=== PATIENT | male | born 1995 | race Caucasian/White ===

== ENCOUNTER 2018-07-09 16:10 | Emergency (ER) | payer SELFPAY ==
[~2018-07-09] VITALS: Ht 182.9 cm; Wt 99.8 kg
--- OUTSIDE RECORDS SUMMARY | 2018-07-09 16:12 | XMS REPORT | Continuity of Care Document ---
Author Author Bethany gia [facility] Interface Address Unknown Phone Unavailable Problems Problem Status Onset Date Classification Date Reported Comments Source Discharge Diagnosis: Atypical chest pain 12/26/2014 12/29/2014 [facility] Discharge Diagnosis: Acute anxiety 12/26/2014 12/29/2014 [facility] CHEST PAIN Active 12/26/2014 [facility] Anxiety Resolved Problem 12/29/2014 [facility] Medications Medication Details Route Status Patient Instructions Ordering Provider Order Date Source Ativan 1 mg, 0.5 mL, Route: IVP, Drug form: INJ, ONCE, Dosing Weight 111.364, kg, Priority: STAT, Start date: 12/26/14 20:41:00, Stop date: 12/26/14 20:41:00Notes: (Same as: Ativan) Inactive 12/27/2014 [facility] Aspirin 324 mg, 4 tab, Route: PO, Drug form: CHEWTAB, ONCE, Dosing Weight 111.364, kg, Priority: STAT, Start date: 12/26/14 20:41:00, Stop date: 12/26/14 20:41:00Notes: Take with food. Inactive 12/27/2014 [facility] Saline Flush 0.9% 10 mL, Route: IVP, Drug Form: INJ, Dosing Weight 111.364, kg, PRN, PRN Line Flush, Start date: 12/26/14 20:41:00, Duration: 30 day, Stop date: 01/25/15 20:40:00Notes: (Same as: BD Posiflush) Inactive 12/27/2014 [facility] Allergies, Adverse Reactions, Alerts Substance Category Reaction Severity Reaction type Status Date Reported Comments Source Immunizations Immunization Date Given Site Status Last Updated Comments Source Results Order Name Results Value Reference Range Date Interpretation Comments Source CARDIAC ENZYMES CK MB Index 0.4 0.0 - 2.5 12/27/2014 [facility] CARDIAC ENZYMES Troponin-I null 0.00 - 0.40 12/27/2014 [facility] CARDIAC ENZYMES CK MB 0.7 ng/mL 0.5 - 3.6 12/27/2014 [facility] CARDIAC ENZYMES Total CK 177 unit/L 12 - 191 12/27/2014 [facility] CHEM PANEL Bili Total 0.4 mg/dL 0.2 - 1.3 12/27/2014 [facility] CHEM PANEL B/C Ratio 13 6 - 25 12/27/2014 [facility] CHEM PANEL BUN 18 mg/dL 7 - 22 12/27/2014 [facility] CHEM PANEL Glucose Lvl 91 mg/dL 70 - 99 12/27/2014 [facility] CHEM PANEL CO2 26 meq/L 24 - 32 12/27/2014 [facility] CHEM PANEL AGAP 11.6 meq/L 10.0 - 20.0 12/27/2014 [facility] CHEM PANEL Albumin Lvl 4.4 g/dL 3.5 - 5.0 12/27/2014 [facility] CHEM PANEL AST 23 unit/L 0 - 37 12/27/2014 [facility] CHEM PANEL ALT 83 unit/L 0 - 65 12/27/2014 [facility] CHEM PANEL Alk Phos 87 unit/L 39 - 136 12/27/2014 [facility] CHEM PANEL Sodium Lvl 140 meq/L 135 - 145 12/27/2014 [facility] CHEM PANEL Potassium Lvl 3.6 meq/L 3.5 - 5.1 12/27/2014 [facility] CHEM PANEL Chloride Lvl 106 meq/L 95 - 109 12/27/2014 [facility] CHEM PANEL A/G Ratio 1.3 0.7 - 1.6 12/27/2014 [facility] CHEM PANEL Globulin 3.5 g/dL 2.0 - 4.0 12/27/2014 [facility] CHEM PANEL Total Protein 7.9 g/dL 6.4 - 8.4 12/27/2014 [facility] CHEM PANEL eGFR 71 mL/min/1.73m2 12/27/2014 Result Comment: The eGFR is calculated using the CKD-EPI formula. In most young, healthy individuals the eGFR will be >90 mL/min/1.73m2. The eGFR declines with age. An eGFR of 60-89 may be normal in some populations, particularly the elderly, for whom the CKD-EPI formula has not been extensively validated. Use of the eGFR is not recommended in the following populations: Individuals with unstable creatinine concentrations, including patients and those with serious co-morbid conditions. Patients with extremes in muscle mass or diet. The data above are obtained from the National Kidney Disease Education Program (NKDEP) which additionally recommends that when the eGFR is used in patients with extremes of body mass index for purposes of drug dosing, the eGFR should be multiplied by the estimated BMI. [facility] CHEM PANEL Creatinine Lvl 1.4 mg/dL 0.5 - 1.4 12/27/2014 [facility] CHEM PANEL Calcium Lvl 9.0 mg/dL 8.5 - 10.5 12/27/2014 [facility] HEMATOLOGY Eosinophils # 0.1 K/CMM 0.0 - 0.5 12/27/2014 [facility] HEMATOLOGY Basophils # 0.1 K/CMM 0.0 - 0.2 12/27/2014 [facility] HEMATOLOGY Basophils 0.6 % 0.0 - 1.0 12/27/2014 [facility] HEMATOLOGY Segs-Bands # 7.5 K/CMM 1.5 - 8.1 12/27/2014 [facility] Monocytes # 1.1 K/CMM 0.0 - 0.8 12/27/2014 [facility] Lymphocytes # 2.7 K/CMM 1.0 - 5.5 12/27/2014 [facility] Monocytes 9.4 % 2.0 - 12.0 12/27/2014 [facility] Eosinophils 0.9 % 0.0 - 4.0 12/27/2014 [facility] Lymphocytes 23.8 % 20.0 - 40.0 12/27/2014 [facility] Segs 65.3 % 45.0 - 75.0 12/27/2014 [facility] WBC 11.5 K/CMM 3.7 - 10.4 12/27/2014 [facility] RBC 5.59 M/CMM 4.70 - 6.10 12/27/2014 [facility] MCH 29.0 pg 27.0 - 31.0 12/27/2014 [facility] MCHC 33.3 g/dL 32.0 - 36.0 12/27/2014 [facility] Hgb 16.2 g/dL 14.0 - 18.0 12/27/2014 [facility] Hct 48.6 % 42.0 - 54.0 12/27/2014 [facility] MCV 87.1 fL 80.0 - 94.0 12/27/2014 [facility] RDW 13.4 % 11.5 - 14.5 12/27/2014 [facility] Platelet 168 K/CMM 133 - 450 12/27/2014 [facility] MPV 10.6 fL 7.4 - 10.4 12/27/2014 [facility] Chest 2 views DX Chest 2 views DX Chest, 2 views: CLINICAL HISTORY: Chest pain COMPARISON: No prior similar examinations are available for comparison. The lungs are clear of consolidation, pleural effusion, and pneumothorax. The heart size is normal. Ill-defined opacity seen in the posterior base of the heart on the lateral image represents summation artifact from vessels. No evidence of pneumoperitoneum. No acute osseous abnormality. IMPRESSION: Normal PA and lateral chest. SL:17 12/26/2014 - - Read by: Joaquín Alba MD Dictated Date/time: 12/26/14 20:01 Electronically Signed by: Joaquín Alba MD 12/26/14 20:02 FINAL REPORT [facility] Vital Signs Vital Sign Value Date Comments Source Systolic (mm Hg) 143 12/27/2014 [facility] Diastolic (mm Hg) 91 12/27/2014 [facility] Respitory Rate 16 12/27/2014 [facility] Heart Rate 80 12/27/2014 [facility] Heart Rate 84 12/27/2014 [facility] Respitory Rate 17 12/27/2014 [facility] Systolic (mm Hg) 143 12/27/2014 [facility] Diastolic (mm Hg) 81 12/27/2014 [facility] Temperature Oral (F) 98.4 F 12/27/2014 [facility] Heart Rate 87 12/27/2014 [facility] Respitory Rate 17 12/27/2014 [facility] Height 182.88 cm 12/27/2014 [facility] Temperature Oral (F) 98.4 F 12/27/2014 [facility] BMI Calculated 33.3 12/27/2014 [facility] Weight 111.364 12/27/2014 [facility] Systolic (mm Hg) 152 12/27/2014 [facility] Diastolic (mm Hg) 87 12/27/2014 [facility] Encounters Location Location Details Encounter Type Encounter Number Reason For Visit Attending Provider ADM Date DC Date Status Source [facility] [id number] Eron Chawla 12/27/2014 12/27/2014 [facility] Outpatient [id number] RAUL CRUZ 04/21/2018 Active [facility] Procedures Procedure Code Date Perfomer Comments Source
--- OUTSIDE RECORDS SUMMARY | 2018-07-09 16:12 | XMS REPORT | Clinical Summary ---
Author Author [facility] Address Unknown Phone Unavailable Care Team Providers Care Airplane Flight Attendant Name Role Phone Ashley Hardy DO PCP Allergies No Known Allergies Medications End Date Status Medication Sig Dispensed Refills Start Date Active therapeutic multivitamin Take 1 tablet 0 (THERAGRAN) tablet by mouth daily. 09/08/2017 amoxicillin-pot Take 1 tablet 20 tablet 0 clavulanate (AUGMENTIN) by mouth 2 8 875-125 mg per tablet (two) times a day for 10 days. 09/28/2017 benzonatate (TESSALON) Take 1 30 capsule 0 200 MG capsule capsule (200 8 mg total) by mouth 3 (three) times a day as needed for cough for up to 30 days. 09/08/2017 codeine-guaifenesin Take 10 mL by 240 mL 0 (GUAIFENESIN AC) 10-100 mouth 4 8 mg/5 mL liquid (four) times a day as needed for cough for up to 10 days. 09/12/2017 promethazine-codeine Take 5 mL by 240 mL 0 (PHENERGAN with CODEINE) mouth every 4 8 6.25-10 mg/5 mL syrup (four) hours as needed for cough for up to 10 days. Active Problems Problem Noted Date Bronchitis 08/29/2017 Cough 08/29/2017 Encounters Care Team Description Date Type Specialty Ashley Hardy DO 09/02/2017 Orders Only Family Medicine Ashley Hardy DO 09/02/2017 Telephone Internal Medicine Ashley Hardy DO Bronchitis (Primary Dx); Cough 08/29/2017 Office Visit Family Medicine after 07/08/2017 Family History Medical History Relation Name Comments Lung cancer Paternal Grandfather Relation Name Status Comments Mother Alive Paternal Grandfather lung cancer Social History Date Tobacco Use Types Packs/Day Years Used Never Smoker Smokeless Tobacco: Never Used Alcohol Use Drinks/Week oz/Week Comments Yes 4 Cans of 2.4 beer Sex Assigned at Date Recorded Not on file Industry Job Start Date Occupation Not on file Not on file Not on file Travel End Travel History Travel Start No recent travel history available. Last Filed Vital Signs Time Taken Vital Sign Reading 08/29/2017 10:47 AM CDT Blood Pressure 124/78 08/29/2017 10:47 AM CDT Pulse 59 08/29/2017 10:47 AM CDT Temperature 37.2 C (98.9 F) - Respiratory Rate - 08/29/2017 10:47 AM CDT Oxygen Saturation 97% - Inhaled Oxygen - Concentration 08/29/2017 10:47 AM CDT Weight 127 kg (280 lb) 08/29/2017 10:47 AM CDT Height 177.8 cm (5' 10") 08/29/2017 10:47 AM CDT Body Mass Index 40.18 Plan of Treatment Health Maintenance Due Date Last Done Comments INFLUENZA VACCINE 11/20/2017 Results Not on fileafter 07/08/2017 Insurance Payer Benefit Subscriber ID Type Phone Address Plan / Group [facility] xxxxxxxxx HMO/PPO THCARE CHOICE/CHO ICE + Advance Directives Patient has advance care planning documents on file. For more information, greta sanchez contact: Fritz Parks [address] [place] [address]
--- OUTSIDE RECORDS SUMMARY | 2018-07-09 16:12 | XMS REPORT | Summary of Care ---
Author Author [facility] Organization [facility] Address Unknown Phone Unavailable Encounter CLARITA Cortes(ERNESTO) [id number] Date(s): 12/26/14 - 12/26/14 [facility] [address] [place] [address]- [phone] Discharge Diagnosis: Atypical chest pain Discharge Diagnosis: Acute anxiety Discharge Disposition: Home Attending Physician: Eron Chawla DO Vital Signs 1 2 3 Most recent to oldest [Reference Range]: 182.88 cm (12/26/14 7:21 PM) Height 1 2 3 Most recent to oldest [Reference Range]: 98.4 DegF (12/26/14 8:38 PM) 98.4 DegF (12/26/14 7:21 PM) Temperature Oral [96.4-99.1 DegF] 1 2 3 Most recent to oldest [Reference Range]: 143/91 mmHg *HI* (12/26/14 10:12 PM) 143/81 mmHg *HI* (12/26/14 9:30 PM) 152/87 mmHg *HI* (12/26/14 7:21 PM) Blood Pressure [90-140/60-90 mmHg] 1 2 3 Most recent to oldest [Reference Range]: 16 BRMIN (12/26/14 10:12 PM) 17 BRMIN (12/26/14 9:30 PM) 17 BRMIN (12/26/14 8:38 PM) Respiratory Rate [14-20 BRMIN] 1 2 3 Most recent to oldest [Reference Range]: 80 bpm (12/26/14 10:12 PM) 84 bpm (12/26/14 9:30 PM) 87 bpm (12/26/14 8:38 PM) Peripheral Pulse Rate [60-100 bpm] 1 2 3 Most recent to oldest [Reference Range]: 111.364 kg (12/26/14 7:21 PM) Weight 1 2 3 Most recent to oldest [Reference Range]: 33.3 m2 (12/26/14 7:21 PM) Body Mass Index Problem List Condition Effective Dates Status Health Status Informant Anxiety(Confirmed) Resolved Allergies, Adverse Reactions, Alerts Substance Reaction Severity Status NKDA Active Medications aspirin 324 mg, 4 tab, Route: PO, Drug form: CHEWTAB, ONCE, Dosing Weight 111.364, kg, P riority: STAT, Start date: 12/26/14 20:41:00, Stop date: 12/26/14 20:41:00 Notes: Take with food. Start Date: 12/26/14 Stop Date: 12/26/14 Status: Completed Ativan 1 mg, 0.5 mL, Route: IVP, Drug form: INJ, ONCE, Dosing Weight 111.364, kg, Prior ity: STAT, Start date: 12/26/14 20:41:00, Stop date: 12/26/14 20:41:00 Notes: (Same as: Ativan) Start Date: 12/26/14 Stop Date: 12/26/14 Status: Completed Saline Flush 0.9% 10 mL, Route: IVP, Drug Form: INJ, Dosing Weight 111.364, kg, PRN, PRN Line Flus h, Start date: 12/26/14 20:41:00, Duration: 30 day, Stop date: 01/25/15 20:40:00 Notes: (Same as: BD Posiflush) Start Date: 12/26/14 Stop Date: 12/26/14 Status: Discontinued Results ELECTROLYTES Most recent to 1 oldest [Reference Range]: Sodium Lvl [135-145 140 mEq/L mEq/L] (12/26/14 8:58 PM) Potassium Lvl 3.6 mEq/L [3.5-5.1 mEq/L] (12/26/14 8:58 PM) Chloride Lvl [95-109 106 mEq/L mEq/L] (12/26/14 8:58 PM) CO2 [24-32 mEq/L] 26 mEq/L (12/26/14 8:58 PM) AGAP [10.0-20.0 11.6 mEq/L mEq/L] (12/26/14 8:58 PM) CHEM PANEL Most recent to 1 oldest [Reference Range]: Creatinine Lvl 1.4 mg/dL [0.5-1.4 mg/dL] (12/26/14 8:58 PM) eGFR 71 mL/min/1.73m2 1 *NA* (12/26/14 8:58 PM) BUN [7-22 mg/dL] 18 mg/dL (12/26/14 8:58 PM) B/C Ratio [6-25] 13 (12/26/14 8:58 PM) Glucose Lvl [70-99 91 mg/dL mg/dL] (12/26/14 8:58 PM) Total Protein 7.9 g/dL [6.4-8.4 g/dL] (12/26/14 8:58 PM) Albumin Lvl [3.5-5.0 4.4 g/dL g/dL] (12/26/14 8:58 PM) Globulin [2.0-4.0 3.5 g/dL g/dL] (12/26/14 8:58 PM) A/G Ratio [0.7-1.6] 1.3 (12/26/14 8:58 PM) Calcium Lvl 9.0 mg/dL [8.5-10.5 mg/dL] (12/26/14 8:58 PM) ALT [0-65 unit/L] 83 unit/L *HI* (12/26/14 8:58 PM) AST [0-37 unit/L] 23 unit/L (12/26/14 8:58 PM) Alk Phos [39-136 87 unit/L unit/L] (12/26/14 8:58 PM) Bili Total [0.2-1.3 0.4 mg/dL mg/dL] (12/26/14 8:58 PM) 1Result Comment: The eGFR is calculated using the [...] from the National Kidney Disease Education Program ( NKDEP) which additionally recommends that when the eGFR is used in patients with extremes of body mass index for purposes of drug dosing, the eGFR should be mul tiplied by the estimated BMI. CARDIAC ENZYMES Most recent to 1 oldest [Reference Range]: Total CK [12-191 177 unit/L unit/L] (12/26/14 8:58 PM) CK MB [0.5-3.6 0.7 ng/mL ng/mL] (12/26/14 8:58 PM) CK MB Index 0.4 [0.0-2.5] (12/26/14 8:58 PM) Troponin-I <0.02 ng/mL [0.00-0.40 ng/mL] (12/26/14 8:58 PM) HEMATOLOGY Most recent to 1 oldest [Reference Range]: WBC [3.7-10.4 K/CMM] 11.5 K/CMM *HI* (12/26/14 8:58 PM) RBC [4.70-6.10 5.59 M/CMM M/CMM] (12/26/14 8:58 PM) Hgb [14.0-18.0 g/dL] 16.2 g/dL (12/26/14 8:58 PM) Hct [42.0-54.0 %] 48.6 % (12/26/14 8:58 PM) MCV [80.0-94.0 fL] 87.1 fL (12/26/14 8:58 PM) MCH [27.0-31.0 pg] 29.0 pg (12/26/14 8:58 PM) MCHC [32.0-36.0 33.3 g/dL g/dL] (12/26/14 8:58 PM) RDW [11.5-14.5 %] 13.4 % (12/26/14 8:58 PM) Platelet [133-450 168 K/CMM K/CMM] (12/26/14 8:58 PM) MPV [7.4-10.4 fL] 10.6 fL *HI* (12/26/14 8:58 PM) Segs [45.0-75.0 %] 65.3 % (12/26/14 8:58 PM) Lymphocytes 23.8 % [20.0-40.0 %] (12/26/14 8:58 PM) Monocytes [2.0-12.0 9.4 % %] (12/26/14 8:58 PM) Eosinophils [0.0-4.0 0.9 % %] (12/26/14 8:58 PM) Basophils [0.0-1.0 0.6 % %] (12/26/14 8:58 PM) Segs-Bands # 7.5 K/CMM [1.5-8.1 K/CMM] (12/26/14 8:58 PM) Lymphocytes # 2.7 K/CMM [1.0-5.5 K/CMM] (12/26/14 8:58 PM) Monocytes # [0.0-0.8 1.1 K/CMM K/CMM] *HI* (12/26/14 8:58 PM) Eosinophils # 0.1 K/CMM [0.0-0.5 K/CMM] (12/26/14 8:58 PM) Basophils # [0.0-0.2 0.1 K/CMM K/CMM] (12/26/14 8:58 PM) Immunizations No data available for this section Procedures No data available for this section Social History Social History Type Response Smoking Status Never smoker; Exposure to Tobacco Smoke None; Cigarette Smoking Last 365 Days No; Reg Smoking Cessation Counseling No Assessment and Plan No data available for this section
--- OUTSIDE RECORDS SUMMARY | 2018-07-09 16:13 | XMS REPORT ---
Author Author [facility] Address Unknown Phone Unavailable Care Team Providers Care Ux Research Associate Name Role Phone DR MERY MARIE Unavailable Unavailable Problems This patient has no known problems. Allergies, Adverse Reactions, Alerts This patient has no known allergies or adverse reactions. Medications This patient has no known medications. Encounters Start Date/Time End Date/Time Encounter Type Admission Type Attending [facility] Care Facility Care Department Encounter ID 2017-10-21 05:16:00 2017-10-21 09:40:00 Outpatient [facility] [id number]
[2018-07-09] MEDS ORDERED: ALBUTEROL/IPRATROPIUM 3 ML NEB NEB ONE (17:00)
[2018-07-09] MEDS ORDERED: IBUPROFEN 600 MG TAB PO STA (17:21)
[2018-07-09 17:36] VITALS: BP 136/75
--- NOTE | 2018-07-09 17:43 | Diagnostic Imaging Report ---
Frontal and lateral views of the chest. HISTORY: Cough, dizzy, fever, bodyaches COMPARISON: None available. DISCUSSION: Lungs: Mild prominence of the peribronchial and soft tissue markings. Questionable subtle 1 cm round density projecting at the periphery of the left midlung. No evidence of a consolidative pneumonia or pulmonary alveolar edema. Pleura: No pleural effusion or pneumothorax. Heart and mediastinum: The cardiomediastinal silhouette appears unremarkable. Bones and soft tissues: Appear unremarkable. IMPRESSION: 1. Findings which can be seen in the setting of a nonspecific bronchitis. 2. Questionable subtle 1 cm nodular density near the periphery of the left midlung. Recommend short term follow up routine PA and lateral chest radiographs, in 6-8 weeks with nipple markers, to evaluate if this persists/resolves. Signed by: Dr. Dick Ambriz D.O., M.M.M. on 07/09/2018 5:40 PM
== END 2018-07-09 18:00 | disposition home or self-care (01) ==
LOC: FSED 16:10
DX: R05 Cough (principal); J20.9 Acute bronchitis, unspecified
CPT/HCPCS: 71046; 83518; 87400; 99284

== ENCOUNTER 2019-06-06 16:03 | Emergency (ER) | payer OTHER ==
[~2019-06-06] VITALS: Ht 182.9 cm; Wt 108.9 kg
--- OUTSIDE RECORDS SUMMARY | 2019-06-06 16:05 | XMS REPORT | Summary of Care ---
Author Author [facility] - Health Organization [facility] - Health Address Unknown Phone Unavailable Care Team Providers [employer] Chair Name Role Phone Eron Truong PCP Reason for Visit * Reason Comments Anxiety * Auth/Cert Referred By Contact Referred To Contact Status Reason Specialty Diagnoses / Procedures [facility] Emergency Dept [address] [place] [address] Emergency Medicine Encounter Details Care Team Description Date Type Department Bert Deluna MD [address] [facility] [address] [place] [address] Palpitation (Primary Dx) 12/08/2018 Emergency [facility] [address] [place] [address] Allergies No Known Allergiesdocumented as of this encounter (statuses as of 12/08/2018) Medications End Date Status Medication Sig Dispensed Refills Start Date Active traMADOL (ULTRAM) 50 mg Take 1 tablet 15 tablet 0 tabletIndications: Chest by mouth 9 wall trauma, initial every 6 (six) encounter hours as needed for Pain (scale 1-3). documented as of this encounter (statuses as of 12/08/2018) Active Problems No known active problemsdocumented as of this encounter (statuses as of 12/08/2018) Social History Date Tobacco Use Types Packs/Day Years Used Never Assessed Sex Assigned at Date Recorded Not on file Industry Job Start Date Occupation Not on file Not on file Not on file Travel End Travel History Travel Start No recent travel history available. documented as of this encounter Last Filed Vital Signs Reading Time Taken Comments Vital Sign 154/82 12/08/2018 3:54 AM CDT Blood Pressure 81 12/08/2018 3:54 AM CDT Pulse 36.9 C (98.5 F) 12/08/2018 3:54 AM CDT Temperature 16 12/08/2018 3:54 AM CDT Respiratory Rate 97% 12/08/2018 3:54 AM CDT Oxygen Saturation - - Inhaled Oxygen Concentration 104.3 kg (230 lb) 12/08/2018 2:23 AM CDT Weight 182.9 cm (6') 12/08/2018 2:23 AM CDT Height 31.19 12/08/2018 2:23 AM CDT Body Mass Index documented in this encounter Discharge Instructions * Instructions* Bert Deluna MD - 12/08/2018 Follow-up with your director of collections and archives for your palpitations. Follow-up with primary care doctor to have your liver function labs rechecked. Return to the ER for any new or concerning symptoms. * Attachments The following attachments cannot be sent through Care Everywhere.* Palpitations (Tunisian) documented in this encounter Plan of Treatment Date/Time Name Type Priority Associated Diagnoses 12/08/2018 3:03 AM CDT EXTRA TUBE LT. [facility]UE LAB ONLY STAT Order Schedule Name Type Priority Associated Diagnoses ONCE for 1 Occurrences starting 12/08/2018 until 12/08/2018 EXTRA TUBE LT. [facility] ONLY Routine Health Maintenance Due Date Last Done Comments VARICELLA VACCINES (1 of 2006 2 - 13+ 2-dose series) DTaP,Tdap,and Td Vaccines 2012 (1 - Tdap) INFLUENZA VACCINE (#1) 2018 HPV VACCINES Aged Out No longer eligible based on patient's age to complete this topic PNEUMOCOCCAL 0-64 YEARS Aged Out No longer eligible based COMBINED SERIES on patient's age to complete this topic documented as of this encounter Procedures Comments Procedure Name Priority Date/Time Associated Diagnosis CBC WITH DIFFERENTIAL STAT 12/08/2018 Palpitation 3:03 AM CDT CBC WITH DIFF STAT 12/08/2018 Palpitation 3:03 AM CDT COMP. METABOLIC PANEL STAT 12/08/2018 Palpitation (42154) 3:03 AM CDT MAGNESIUM STAT 12/08/2018 Palpitation 3:03 AM CDT EKG-12 LEAD Routine 12/08/2018 2:55 AM CDT documented in this encounter Results * CBC WITH DIFFERENTIAL (12/08/2018 3:03 AM CDT) WBC 5.48 4.20 - 10.70 [facility] 10*3/L [facility] RBC 4.62 4.26 - 5.52 10*6/L [facility] HGB 14.8 12.2 - 16.4 g/dL [facility] HCT 42.7 38.4 - 49.3 % [facility] MCV 92.4 81.7 - 95.6 fL [facility] MCH 32.0 26.1 - 32.7 pg [facility] MCHC 34.7 31.2 - 35.0 g/dL [facility] RDW-SD 42.0 38.5 - 51.6 fL [facility] RDW-CV 12.3 12.1 - 15.4 % [facility] PLT 165 150 - 328 10*3/L [facility] MPV 11.1 9.8 - 13.0 fL [facility] NRBC/100 WBC 0.0 0.0 - 10.0 /100 WBCs [facility] NRBC x10^3 <0.01 10*3/L [facility] GRAN MAT (NEUT) 42.1 % [facility] % [facility] IMM GRAN % 0.20 % [facility] LYMPH % 42.5 % [facility] MONO % 11.9 % [facility] EOS % 2.2 % [facility] BASO % 1.1 % [facility] GRAN MAT 2.31 1.99 - 6.95 10*3/uL [facility] x10^3(ANC) [facility] IMM GRAN x10^3 <0.03 0.00 - 0.06 10*3/uL [facility] LYMPH x10^3 2.33 1.09 - 3.23 10*3/uL [facility] MONO x10^3 0.65 0.36 - 1.02 10*3/uL [facility] EOS x10^3 0.12 0.06 - 0.53 10*3/uL [facility] BASO x10^3 0.06 0.01 - 0.09 10*3/uL [facility] Specimen Blood - ARM, LEFT Performing Organization Address [facility] Phone Number [facility] CLIA: [id number], [address] [place], [place] [address] [facility] * MAGNESIUM (12/08/2018 3:03 AM CDT) MAGNESIUM 1.8 1.7 - 2.4 mg/dL [facility] Specimen Blood - ARM, LEFT Performing Organization Address [facility] Phone Number [facility] CLIA: [id number], [address] [place], [place] [id number] [facility] * COMP. METABOLIC PANEL (02048) (12/08/2018 3:03 AM CDT) NA 136 135 - 145 mmol/L [facility] K 3.3 (L) 3.5 - 5.0 mmol/L [facility] CL 97 (L) 98 - 108 mmol/L [facility] CO2 TOTAL 26 23 - 31 mmol/L [facility] AGAP 13 2 - 16 [facility] BUN 13 7 - 23 mg/dL [facility] GLUCOSE 179 (H) 70 - 110 mg/dL [facility] CREATININE 0.94 0.60 - 1.25 mg/dL [facility] TOTAL BILI 0.6 0.1 - 1.1 mg/dL [facility] CALCIUM 9.6 8.6 - 10.6 mg/dL [facility] T PROTEIN 6.3 6.3 - 8.2 g/dL [facility] ALBUMIN 3.8 3.5 - 5.0 g/dL [facility] ALK PHOS 214 (H) 34 - 122 U/L [facility] ALT(SGPT) 140 (H) 9 - 51 U/L [facility] AST(SGOT) 178 (H) 13 - 40 U/L [facility] eGFR 97.8 mL/min/1.73m2 [facility] [place] eGFR 118.5 mL/min/1.73m2 [facility] [place] Specimen Blood - ARM, LEFT Narrative Performed At Association of Glomerular Filtration Rate (GFR) and Staging of Kidney Disease* [facility] + + + [facility] | GFR (mL/min/1.73 m2)| With Kidney Damage|Without Kidney Damage CAMPUS + + + + |>90|Stage one| Normal + + + + |60-89|Stage two| Decreased GFR + + + + |30-59|Stage three| Stage three + + + + |15-29|Stage four | Stage four + + + + |<15 (or dialysis)|Stage five | Stage five + + + + *Each stage assumes the associated GFR level has been in effect for at least three months.Stages 1 to 5, with or without kidney disease, indicate chronic kidney disease. Notes: Determination of stages one and two (with eGFR >59mL/min/1.73 m2) requires estimation of kidney damage for at least three months as defined by structural or functional abnormalities of the kidney, manifested by either: Pathological abnormalities or Markers of kidney damage (including abnormalities in the composition of the blood or urine or abnormalities in imaging tests). Performing Organization Address City/State/Zipcode Phone Number [facility] CLIA: [id number], [address] [place] [address] [facility] documented in this encounter Visit Diagnoses Diagnosis Palpitation - Primary Palpitations documented in this encounter Administered Medications Action Date Dose Rate Site Medication Order MAR Action 12/08/2018 3:52 AM CDT 2 mg diazePAM (VALIUM) tablet 2 mg Given 2 mg, Oral, ONCE, 1 dose, Sat12/08/18 at 0445, FEI 12/08/2018 3:42 AM CDT 20 mEq KCL (KLOR-CON M20) tablet 20 mEq Given 20 mEq, Oral, ONCE, 1 dose, Sat12/08/18 at 0415, FEI 12/08/2018 3:07 AM CDT 1,000 mL 999 mL/hr Left Arm NaCl 0.9% (NS) bolus infusion 1,000 mL New Bag at 999 mL/hr, 1,000 mL, IV Piggyback, ONCE, 1 dose, Sat12/08/18 at 0400, STAT documented in this encounter Insurance Type Payer Benefit Subscriber ID Effective Phone Address Plan / Dates Group HMO/PPO/POS CIGNA CIGNA II [id number] 2018-P resent documented as of this encounter"
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
[2019-06-06] MEDS ORDERED: IBUPROFEN 600 MG TAB PO STA (16:44)
[2019-06-06] MEDS ORDERED: IBUPROFEN 600 MG TAB ONE (16:49)
--- NOTE | 2019-06-06 17:00 | Diagnostic Imaging Report ---
EXAMINATION: CT of the abdomen and pelvis without contrast. TECHNIQUE: Spiral CT images of the abdomen and pelvis were performed from the lung bases to the lesser trochanters. No intravenous contrast was given per renal stone protocol. Coronal and sagittal reformatted images were obtained. COMPARISON: None. CLINICAL HISTORY:Inguinal hernia DISCUSSION: ABSENCE OF INTRAVENOUS CONTRAST DECREASES SENSITIVITY FOR DETECTION OF FOCAL LESIONS AND VASCULAR PATHOLOGY. ABDOMEN/PELVIS: LOWER THORAX: Lung bases are unremarkable. No pleural effusion. HEPATOBILIARY:No focal hepatic lesions. No intrahepatic biliary ductal dilation. The gallbladder is unremarkable. SPLEEN: No splenomegaly or focal splenic lesion. PANCREAS: No focal masses or ductal dilatation. ADRENALS: No adrenal nodules. KIDNEYS/URETERS: No hydronephrosis, calculi, or solid or cystic mass lesions. PELVIC ORGANS/BLADDER: Urinary bladder is incompletely distended but otherwise unremarkable. Prostate is normal in appearance. Pelvic phleboliths. PERITONEUM/RETROPERITONEUM: No ascites or pneumoperitoneum. LYMPH NODES: No pelvic sidewall, retroperitoneal, or mesenteric lymphadenopathy. VESSELS: Limited evaluation in the abscence of intravenous contrast. The abdominal aorta is non-aneurysmal. GI TRACT: The large bowel shows no distension or wall thickening. Appendix is normal. No small bowel dilatation to suggest obstruction. BONES AND SOFT TISSUES: No osseous destructive lesions. No focal soft tissue abnormalities. IMPRESSION: No acute intra-abdominal or pelvic CT abnormality. No inguinal hernia per clinical query. Signed by: Dr. Ritchie De La Paz M.D. on 06/06/2019 4:57 PM
== END 2019-06-06 17:16 | disposition home or self-care (01) ==
LOC: FSED 16:03
DX: N50.812 Left testicular pain (principal); N50.811 Right testicular pain; R10.30 Lower abdominal pain, unspecified
CPT/HCPCS: 74176; 81003; 99284